=== PATIENT | female | born 1945 | race Two or more races ===

== ENCOUNTER → 2021-09-07 | Outpatient (CLI) | payer MEDICARE ==
--- NOTE | 2021-09-07 08:36 | RAD ---
STUDY: US ABDOMEN LIMITED INDICATION: Ventral hernia. COMPARISON: None. TECHNIQUE: Limited abdominal ultrasound targeted at the right lower quadrant. Findings: Ultrasound assessment of the ventral right lower quadrant for a potential hernia. The study is made d ifficult by patient body habitus and bowel gas. No large hernia appreciated at the right lower quadra nt at rest or with Valsalva. No well delineated fluid collection or other abnormality within the subc utaneous fat. Impression: No acute abnormality or hernia apparent by ultrasound at the right lower quadrant. Electronically signed by: JOSÉ LUIS CONTRERAS MD (09/07/2021 8:34 AM) [facility]
== END ==
LOC: US 07:09
PROVIDERS: ATTEND Family Medicine
DX: R10.9 Unspecified abdominal pain (principal); K43.9 Ventral hernia without obstruction or gangrene
CPT/HCPCS: 76705